=== PATIENT | female | born 1975 | race Caucasian/White ===

== ENCOUNTER 2023-07-23 07:31 | Day surgery (SDC) | payer MEDICARE ==
[2023-07-22 09:18] VITALS: BMI 46.6
[2023-07-23] MEDS ORDERED: Midazolam HCl 2 mg/2 ml Vial ONE (09:28)
[2023-07-23] MEDS ORDERED: Lidocaine 1% PF 5 ML VIAL ONE (09:33)
[2023-07-23] MEDS ORDERED: PROPOFOL 60 ML ONE (09:33)
[2023-07-23] MEDS ORDERED: PHENYLEPHRINE-NS 100 MCG/ML 10 ML SYRINGE ONE (09:44)
[2023-07-23] MEDS ORDERED: GLYCOPYRROLATE/PF 0.2 MG/ML VIAL ONE (09:44)
== END 2023-07-23 11:17 | disposition home or self-care (01) ==
LOC: SDC 07:31
PROVIDERS: ATTEND Internal Medicine Gastroenterology
PROC: 0DB68ZX Excision of Stomach, Via Natural or Artificial Opening Endoscopic, Diagnostic (ICD-10-PCS; principal; 2023-07-23)
PROC: 0D758ZZ Dilation of Esophagus, Via Natural or Artificial Opening Endoscopic (ICD-10-PCS; 2023-07-23)
PROC: 0DJD8ZZ Inspection of Lower Intestinal Tract, Via Natural or Artificial Opening Endoscopic (ICD-10-PCS; 2023-07-23)
DX: R13.19 Other dysphagia (principal); K22.10 Ulcer of esophagus without bleeding; K29.00 Acute gastritis without bleeding; K31.89 Other diseases of stomach and duodenum; K92.1 Melena; I10 Essential (primary) hypertension; F32.A Depression, unspecified; F41.9 Anxiety disorder, unspecified; M32.9 Systemic lupus erythematosus, unspecified; Z86.711 Personal history of pulmonary embolism; E66.01 Morbid (severe) obesity due to excess calories; Z68.41 Body mass index [BMI] 40.0-44.9, adult; Z91.041 Radiographic dye allergy status; Z88.5 Allergy status to narcotic agent; Z88.8 Allergy status to other drugs, medicaments and biological substances; Z91.013 Allergy to seafood; Z90.710 Acquired absence of both cervix and uterus; Z79.899 Other long term (current) drug therapy
CPT/HCPCS: 43239; 43249; 45378; J3490; 88305; C1726; J2250; J2704